=== PATIENT | female | born 1995 | race African-American/Black ===

== ENCOUNTER 2018-10-07 12:04 | Emergency (ER) | payer OTHER ==
[2018-10-07 12:47] VITALS: BP 126/68; PULSE 77; TEMP 98.7; BMI 451.7
--- NOTE | 2018-10-07 13:48 | PDOC ---
History of Present Illness - General Chief Complaint: Pain Stated Complaint: LEFT ANKLE INJURY Time Seen by Provider: 10/07/18 13:32 - History of Present Illness Initial Comments: 10/07/18 13:44 23-year-old female presents for evaluation of left ankle pain after describing an inversion injury 2 days ago. She has been weightbearing on that she points to the lateral aspect of the left ankle as the area of her discomfort. Past History - Past Medical History Allergies/Adverse Reactions: Allergies Allergy/AdvReac Type Severity Reaction Status Date / Time Penicillins Allergy Verified 08/27/12 08:56 Home Medications: Ambulatory Orders No Home Medications 0 dose .ROUTE UTDICT 08/27/12 - Suicide/Smoking/Psychosocial Hx Smoking Status: Yes (MARIJUANA) Smoking History: Former smoker Have you smoked in the past 12 months: No Number of Cigarettes Smoked Daily: 2 If you are a former smoker, when did you quit?: 10 Information on smoking cessation initiated: No Hx Alcohol Use: No Drug/Substance Use Hx: Yes (juan manuel) Review of Systems - Review of Systems Musculoskeletal: Yes: Joint Pain *Physical Exam - Vital Signs Last Vital Signs Temp Pulse Resp BP Pulse Ox 98.7 F 77 20 126/68 95 10/07/18 12:43 10/07/18 12:43 10/07/18 12:43 10/07/18 12:43 10/07/18 12:43 - Physical Exam Comments: 10/07/18 13:44 Left ankle skin color and temperature are normal. Range of motion is slightly limited. There is no tenderness about the proximal fibula knee or along the distal coarse of the fibula. No tenderness about the medial lateral malleolus base of the fifth metatarsal or navicular. There is tenderness over the ATFL no evidence of instability or gross sensorimotor deficits. She is neurovascularly intact. Moderate Sedation - Procedure Monitoring Vital Signs: Procedure Monitoring Vital Signs Temperature 98.7 F 10/07/18 12:43 Pulse Rate 77 10/07/18 12:43 Respiratory Rate 20 10/07/18 12:43 Blood Pressure 126/68 10/07/18 12:43 O2 Sat by Pulse Oximetry (%) 95 10/07/18 12:43 Medical Decision Making - Medical Decision Making 10/07/18 15:01 X-ray show no evidence of fracture trauma or destructive process. Left ankle sprain. Aircast with past tolerated with crutches follow-up with orthopedics *DC/Admit/Observation/Transfer Diagnosis at time of Disposition: Left ankle sprain - Discharge Dispostion Disposition: HOME Condition at time of disposition: Stable Decision to Admit order: No - Referrals Referrals: Katalina Pappas [Primary Care Provider] - Good Marsh DO [Staff Physician] - - Patient Instructions Printed Discharge Instructions: Ankle Sprain, DI for Ankle Sprain Additional Instructions: He may weight-bear as tolerated with use of crutches and the Aircast. Please follow-up with orthopedic surgery in 1-2 days further evaluation and treatment options. Tylenol and Motrin as directed for pain. Return to the emergency room for worsening symptoms. - Post Discharge Activity
== END 2018-10-07 15:09 | disposition home or self-care (01) ==
LOC: JERFT 12:04
PROC: 2W3RX1Z Immobilization of Left Lower Leg using Splint (ICD-10-PCS; principal; 2018-10-07)
DX: S93.402A Sprain of unspecified ligament of left ankle, initial encounter (principal); X50.1XXA Overexertion from prolonged static or awkward postures, initial encounter; Y93.89 Activity, other specified; Y92.89 Other specified places as the place of occurrence of the external cause; Y99.8 Other external cause status
CPT/HCPCS: 29515; 73610-TC-LT-FY; 84703; 99281-25

== ENCOUNTER 2020-11-12 14:42 | Emergency (ER) | payer OTHER ==
[2020-11-12 15:08] VITALS: BP 134/70; PULSE 76; BMI 42.5
[2020-11-12 15:12] VITALS: TEMP 98.1
[2020-11-12] MEDS ORDERED: KETOROLAC TROMETHAMINE 30 MG/1 ML VIAL IM ONE (15:17)
[2020-11-12] MEDS ORDERED: KETOROLAC TROMETHAMINE 30 MG/1 ML VIAL ONE (15:19)
== END 2020-11-12 15:28 | disposition home or self-care (01) ==
LOC: JERFT 14:42 → JER 14:42 → JERFT 15:28
PROC: 3E0233Z Introduction of Anti-inflammatory into Muscle, Percutaneous Approach (ICD-10-PCS; principal; 2020-11-12)
DX: M77.02 Medial epicondylitis, left elbow (principal)
CPT/HCPCS: 99284-25

== ENCOUNTER 2021-01-02 12:04 | Emergency (ER) | payer OTHER ==
[2021-01-02 12:09] VITALS: BP 128/76; PULSE 90; TEMP 98.2; BMI 40.8
== END 2021-01-02 14:48 | disposition home or self-care (01) ==
LOC: JERFT 12:04
DX: H00.021 Hordeolum internum right upper eyelid (principal); H00.024 Hordeolum internum left upper eyelid; Z32.02 Encounter for pregnancy test, result negative
CPT/HCPCS: 84703; 99283-25

== ENCOUNTER 2021-02-21 11:54 | Emergency (ER) | payer OTHER ==
[2021-02-21 12:18] VITALS: BP 130/86; PULSE 69; TEMP 98.7; BMI 36.2
[2021-02-21] MEDS ORDERED: IBUPROFEN 400 MG TABLET (FP) PO ONE ×2 (12:23→12:26)
== END 2021-02-21 14:00 | disposition home or self-care (01) ==
LOC: JER 11:54
DX: M25.552 Pain in left hip (principal)
CPT/HCPCS: 99283-25

== ENCOUNTER 2021-03-01 14:06 | Emergency (ER) | payer OTHER ==
[2021-03-01 14:21] VITALS: BP 121/78; PULSE 84; TEMP 98.2; BMI 41.5
[2021-03-01] MEDS ORDERED: IBUPROFEN 600 MG TABLET (FP) PO ONE ×2 (14:50→14:54)
[2021-03-01] MEDS ORDERED: BACITRACIN 15 GM TUBE TOPICAL OINTMENT ONE (14:55)
== END 2021-03-01 15:11 | disposition home or self-care (01) ==
LOC: JERFT 14:06
DX: M25.562 Pain in left knee (principal)
CPT/HCPCS: 73562-TC-LT-FY; 99283-25

== ENCOUNTER 2021-08-18 00:16 | Emergency (ER) | payer OTHER ==
[2021-08-18 02:55] VITALS: BP 141/95; PULSE 92; TEMP 99.5; BMI 43.4
== END 2021-08-18 06:58 | disposition home or self-care (01) ==
LOC: JER 00:16
DX: J11.1 Influenza due to unidentified influenza virus with other respiratory manifestations (principal)
CPT/HCPCS: 99283-25; C9803; U0003; U0005

== ENCOUNTER 2021-12-16 19:19 | Emergency (ER) | payer OTHER ==
[2021-12-16 19:24] VITALS: BP 126/77; PULSE 79; TEMP 98; BMI 45.7
[2021-12-16] MEDS ORDERED: ONDANSETRON 4 MG/2 ML VIAL IVPB ONE (20:16)
[2021-12-16] MEDS ORDERED: ACETAMINOPHEN 1000 MG/100 ML BAG IVPB ONE (20:16)
[2021-12-16] MEDS ORDERED: MAG HYDROX/AL HYDROX/SIMETH 30 ML UNIT-DOSE CUP PO ONE (20:29)
[2021-12-16] MEDS ORDERED: FAMOTIDINE 20 MG/50 ML IVPB 20 MG/50 ML MG IVPB ONE (20:29)
[2021-12-16] MEDS ORDERED: SODIUM CHLORIDE 0.9% 500 ML INFUS.BAG IV ONE (20:37)
[2021-12-16] MEDS ORDERED: ACETAMINOPHEN INJECTION 100 ML IVPB ONE (20:40)
[2021-12-16] MEDS ORDERED: MAG HYDROX/AL HYDROX/SIMETH 30 ML UNIT-DOSE CUP ONE (20:40)
[2021-12-16] MEDS ORDERED: FAMOTIDINE 10 MG/ML VIAL IVPB ONE (20:41)
[2021-12-16] MEDS ORDERED: ONDANSETRON 4 MG/2 ML VIAL ONE (20:41)
[2021-12-16 20:57] LABS: BASO % 0.6 % (0-2.0); EOS % 3.3 % (0-4.5); HEMATOCRIT 37.2 % (32.4-45.2); HEMOGLOBIN 12.9 GM/dL (10.7-15.3); LYMPH % 42.8 % (8-40); MCH 32.7 pg (25.7-33.7); MCHC 34.5 g/dl (32.0-36.0); MEAN CELL VOLUME 94.8 fl (80-96); MEAN PLT VOLUME 8.3 fl (7.5-11.1); MONO % 9.9 % (3.8-10.2); NEUT % 43.4 % (42.8-82.8); PLATELET COUNT 231 10^3/uL (134-434); RBC 3.93 M/mm3 (3.60-5.2); RDW 13.4 % (11.6-15.6); WHITE BLOOD COUNT 6.4 K/mm3 (4.0-10.0)
[2021-12-16 22:01] LABS: CHLORIDE 108 mmol/L (98-107); SODIUM 142 mmol/L (136-145)
[2021-12-16 22:03] LABS: ANION GAP 6 MMOL/L (8-16); CO2 27 mmol/L (21-32); GLUCOSE,RANDOM 69 mg/dL (74-106)
[2021-12-16 22:04] LABS: ALBUMIN 3.7 g/dl (3.4-5.0)
[2021-12-16 22:06] LABS: CREATININE 0.6 mg/dL (0.55-1.3); SGOT/AST 16 U/L (15-37); SGPT/ALT 28 U/L (13-61)
[2021-12-16 22:08] LABS: BILIRUBIN,TOTAL 0.4 mg/dL (0.2-1); TOT PROT 7.1 g/dl (6.4-8.2)
[2021-12-16 22:09] LABS: ALK PHOS 64 U/L (45-117)
== END 2021-12-16 23:42 | disposition left against medical advice (07) ==
LOC: JER 19:19
PROC: 3E033GC Introduction of Other Therapeutic Substance into Peripheral Vein, Percutaneous Approach (ICD-10-PCS; principal; 2021-12-16)
DX: R51.9 Headache, unspecified (principal); R10.13 Epigastric pain
CPT/HCPCS: 36415; 76705-TC; 80053; 84702; 84703; 85025; 96365; 96375; 99284-25

== ENCOUNTER 2022-07-10 12:37 | Emergency (ER) | payer OTHER ==
[2022-07-10 13:29] VITALS: BMI 41.1
[2022-07-10] MEDS ORDERED: MECLIZINE HCL 25 MG TABLET (FP) PO ONE (14:58)
[2022-07-10] MEDS ORDERED: METOCLOPRAMIDE HCL INJECTION 10 MG/2 ML VIAL IM ONE (14:59)
[2022-07-10] MEDS ORDERED: METOCLOPRAMIDE HCL 10 MG TABLET (FP) PO ONE ×2 (15:18→15:19)
[2022-07-10] MEDS ORDERED: MECLIZINE HCL 25 MG TABLET (FP) ONE (15:19)
[2022-07-10 17:45] VITALS: BP 130/86; PULSE 73; RESP 20; TEMP 98.7
== END 2022-07-10 17:45 | disposition home or self-care (01) ==
LOC: JER 12:37
DX: R42 Dizziness and giddiness (principal)
CPT/HCPCS: 84703; 93005; 93010; 99284-25

== ENCOUNTER 2023-10-29 15:35 | Emergency (ER) | payer OTHER ==
[2023-10-29 15:47] VITALS: RESP 18; BMI 42.3
[2023-10-29] MEDS ORDERED: ONDANSETRON 4 MG/2 ML VIAL ONE (16:15)
[2023-10-29 16:25] LABS: EPI CELLS 20 /uL (0-25.1); HYALINE CASTS 1 /uL (0-3.1); URINE APPEARANCE CLEAR; URINE BACTERIA 79 /uL (0-1359); URINE BILIRUBIN NEGATIVE (NEGATIVE); URINE COLOR YELLOW; URINE GLUCOSE (UA) NEGATIVE (NEGATIVE); URINE KETONE TRACE (NEGATIVE); URINE LEUK ESTERASE NEGATIVE (NEGATIVE); URINE NITRITE NEGATIVE (NEGATIVE); URINE PROTEIN 1+ (NEGATIVE); URINE RBC 73 /uL (0-23.9); URINE WBC 22 /uL (0-25.8)
[2023-10-29] MEDS: SODIUM CHLORIDE 0.9% 500 ML INFUS.BAG IV ONE (16:45)
[2023-10-29] MEDS: ONDANSETRON 4 MG/2 ML VIAL IVPUSH ONE (16:45)
[2023-10-29 17:16] LABS: BASO % 0.4 % (0-2.0); EOS % 0.9 % (0-4.5); HEMATOCRIT 37.5 % (32.4-45.2); HEMOGLOBIN 13.1 GM/dL (10.7-15.3); LYMPH % 23.3 % (8-40); MCH 33.1 pg (25.7-33.7); MCHC 34.9 g/dl (32.0-36.0); MEAN PLT VOLUME 9.9 fl (7.5-11.1); MONO % 10.2 % (3.8-10.2); NEUT % 65.2 % (42.8-82.8); PLATELET COUNT 280 10^3/uL (134-434); RBC 3.95 M/mm3 (3.60-5.2); RDW 13.5 % (11.6-15.6); WHITE BLOOD COUNT 7.8 K/mm3 (4.0-10.0)
[2023-10-29 17:35] LABS: POTASSIUM 4.4 mmol/L (3.5-5.1)
[2023-10-29 17:36] LABS: CALCIUM 8.9 mg/dL (8.5-10.1)
[2023-10-29 17:37] LABS: BLOOD UREA NITROGEN 6.8 mg/dL (7-18)
[2023-10-29 17:40] LABS: CREATININE 0.7 mg/dL (0.55-1.3)
[2023-10-29] MEDS ORDERED: KETOROLAC TROMETHAMINE 30 MG/1 ML VIAL ONE (17:55)
[2023-10-29] MEDS: KETOROLAC TROMETHAMINE 30 MG/1 ML VIAL IVPUSH ONE (18:00)
[2023-10-29] MEDS ORDERED: SULFAMETHOXAZOLE/TRIMETHOPRIM 800MG/160MG D.S. TABLET ONE (18:27)
[2023-10-29] MEDS: SULFAMETHOXAZOLE/TRIMETHOPRIM 800MG/160MG D.S. TABLET PO ONE (18:40)
[2023-10-29 18:49] VITALS: BP 142/96; PULSE 74; TEMP 98.9
== END 2023-10-29 16:42 | disposition home or self-care (01) ==
LOC: JER 15:35
PROC: 3E033NZ Introduction of Analgesics, Hypnotics, Sedatives into Peripheral Vein, Percutaneous Approach (ICD-10-PCS; principal; 2023-10-29)
PROC: 3E033GC Introduction of Other Therapeutic Substance into Peripheral Vein, Percutaneous Approach (ICD-10-PCS; 2023-10-29)
DX: R11.10 Vomiting, unspecified (principal); R53.83 Other fatigue; K52.9 Noninfective gastroenteritis and colitis, unspecified; H66.91 Otitis media, unspecified, right ear; M54.2 Cervicalgia; Z20.822 Contact with and (suspected) exposure to COVID-19
CPT/HCPCS: 0241U-QW; 36415; 80048; 81003; 84703; 85025; 87086; 87651; 99284-25